=== PATIENT | female | born 1995 | race Caucasian/White ===

== ENCOUNTER 2017-11-02 11:23 | Emergency (ER) | payer SELFPAY ==
[2017-11-02 11:31] VITALS: BP 145/73; BMI 39.4
[2017-11-02] MEDS ORDERED: PROTONIX TAB 40 MG PO ONE ×2 (12:17→12:33)
[2017-11-02] MEDS ORDERED: PHENERGAN INJ 25 MG IM ONE (12:17)
--- NOTE | 2017-11-02 12:20 | DR.GENAD ---
HPI - PCP Primary Care Physician: none - Complaint/Symptoms Chief Complaint Doctors Comments: She has had suprapubic abdominal pain early this a.m. while at work. She describes this as sharp and constant until her arrival here. She also burped at work and it had a sour taste. Chief Complaint:: "abd pain since this moring with sour burps" - Nurses notes reviewed Nurses Notes Review: Yes - Source History Provided: Patient - Mode of Arrival Mode of Arrival: Ambulatory - Timing Onset of Chief Complaint: 11/02/17 PMH - PMH Past Medical History: Yes Past Medical History: Asthma Past Surgical History: Yes Surgical History: Tonsillectomy - Family History History of Family Medical Conditions: Yes Family Medical History: Cancer, [place], Coronary Artery Disease, Heart Failure, Hypertension - Social History Does patient currently use any type of tobacco product: No Have you used tobacco products in the last 12 months: No Type of Tobacco Use: None Does any household member use tobacco: No Alcohol Use: None Do you use any recreational Drugs:: No Lives With: Family Lives Where: Home - infectious screening In the last 2 months have you had wt loss of >10#?: NO Have you had fever, night sweats or hemotysis?: No Have you traveled outside the country in the last 6 months?: No Isolation: Standard ROS - Review of Systems Constitutional: No Symptoms Reported Eyes: No Symptoms Reported ENTM: No Symptoms Reported Respiratoy: No Symptoms Reported Cardiovascular: No Symptoms Reported Gastrointestinal/Abdominal: Abdominal Pain (suprapubic location) Genitourinary: No Symptoms Reported Neurological: No Symptoms Reported Musculoskeletal: No Symptoms Reported Integumentary: No Symptoms Reported Hematologic/Lymphatic: No Symptoms Reported Endocrine: No Symptoms Reported Psychiatric: No Symptoms Reported PE - Vital Signs Vitals: Temperature 98 F Pulse Rate 90 Respiratory Rate 18 Blood Pressure [Left Arm] 115/71 Blood Pressure 145/73 O2 Sat by Pulse Oximetry 100 - General Limitations: No Limitations General Appearance: Alert, In No Apparent Distress - Head Head Exam: Normal Inspection - Eyes Eye exam: Normal Appearance, PERRL, EOMI - ENT ENT Exam: Normal Exam - Neck Neck Exam: Normal Inspection, Full ROM - Chest Chest Inspection: Normal Inspection, Symmetric Chest Wall Rise - Respiratory Respiratory Exam: Normal Lung Sounds Bilat - Cardiovascular Cardiovascular Exam: Regular Rate, Normal Rhythm, +S1, +S2 - Abdominal Exam Abdominal Exam: Normal Inspection, Normal Bowel Sounds, Soft, Tenderness Abdominal Tenderness: Suprapubic - Extremities Extremities Exam: Normal Inspection, Full ROM - Back Back Exam: Normal Inspection, Full ROM - Neurologic Neurological Exam: Alert, Oriented X3 - Psychiatric Psychiatric Exam: Normal Affect, Normal Mood - Skin Skin Exam: Warm, Dry, Intact, Normal Color ROR - Labs Reviewed Result Diagrams: 11/02/17 12:29 Laboratory: Sodium 139 mmol/L (136-145) 11/02/17 12:29 Corrected Sodium TNP 11/02/17 12:29 Potassium 3.9 mmol/L (3.5-5.1) 11/02/17 12:29 Chloride 102 mmol/L (98-107) 11/02/17 12:29 Carbon Dioxide 27.4 mmol/L (21-32) 11/02/17 12:29 BUN 10 mg/dL (7-18) 11/02/17 12:29 Creatinine 0.48 mg/dL (0.55-1.02) L 11/02/17 12:29 Est GFR (MDRD) Af Amer > 60 (>60) 11/02/17 12:29 Est GFR (MDRD) Non-Af > 60 (>60) 11/02/17 12:29 Glucose 89 mg/dL (65-99) 11/02/17 12: Calcium 9.0 mg/dL (8.5-10.1) 11/02/17 12:29 Corrected Calcium TNP 11/02/17 12:29 Total Bilirubin 0.20 mg/dL (0.2-1.0) 11/02/17 12:29 AST 15 Units/L (15-37) 11/02/17 12:29 ALT 18 Units/L (12-78) 11/02/17 12:29 Alkaline Phosphatase 85 Units/L (46-116) 11/02/17 12:29 Total Protein 7.9 g/dL (6.4-8.2) 11/02/17 12:29 Albumin 3.6 g/dL (3.4-5.0) 11/02/17 12:29 Globulin 4.3 g/dL (2.5-4.5) 11/02/17 12:29 Albumin/Globulin Ratio 0.8 Ratio (1.1-2.1) L 11/02/17 12:29 Amylase 41 Units/L (25-115) 11/02/17 12:29 Specimen Type Clean catch urine 11/02/17 12:19 Urine Color Yellow (YELLOW) 11/02/17 12: Urine Appearance Clear (CLEAR) 11/02/17 12:19 Urine pH 5.0 (5.0 - 8.0) 11/02/17 12:19 Ur Specific [place] 1.025 (1.000-1.030) 11/02/17 12:19 Urine Protein Negative (NEGATIVE) 11/02/17 12:19 Urine Glucose (UA) Negative (NEGATIVE) 11/02/17 12: Urine Ketones Negative (NEGATIVE) 11/02/17 12: Urine Occult Blood 1+ (NEGATIVE) 11/02/17 12: Urine Nitrite Negative (NEGATIVE) 11/02/17 12: Urine Bilirubin Negative (NEGATIVE) 11/02/17 12:19 Urine Urobilinogen Normal (NORMAL) 11/02/17 12:19 Ur Leukocyte Esterase 2+ (NEGATIVE) 11/02/17 12: Urine RBC 2-5 /HPF (NEGATIVE) 11/02/17 12:19 Urine WBC 2-4 /HPF (NEGATIVE) 11/02/17 12:19 Ur Squamous Epith Cells Many /HPF (NEGATIVE) 11/02/17 12: Amorphous Sediment 1+ /HPF (NEGATIVE) 11/02/17 12: Urine Bacteria Negative /HPF (NEGATIVE) 11/02/17 12:19 Ur Culture Indicated? No/not indicated 11/02/17 12:19 - Diagnosis Discharge Problem: Lower urinary tract infection, GERD (gastroesophageal reflux disease) - Discharge Plan Disposition: 01 HOME, SELF-CARE Condition: Stable - Follow ups/Referrals Follow ups/Referrals: NFD,None [Primary Care Provider] - 3 days - Instructions
[2017-11-02] MEDS ORDERED: PHENERGAN INJ 25 MG ONE (12:33)
[2017-11-02 12:50] LABS: ALANINE AMINOTRANSFERASE 18 Units/L (12-78); ALBUMIN 3.6 g/dL (3.4-5.0); ALKALINE PHOSPHATASE 85 Units/L (46-116); AMYLASE 41 Units/L (25-115); ASPARTATE AMINO TRANSFERASE 15 Units/L (15-37); BLOOD UREA NITROGEN 10 mg/dL (7-18); CARBON DIOXIDE 27.4 mmol/L (21-32); CHLORIDE 102 mmol/L (98-107); CREATININE 0.48 mg/dL (0.55-1.02); SODIUM 139 mmol/L (136-145); TOTAL PROTEIN 7.9 g/dL (6.4-8.2); eGFR BLACK RACES > 60 (>60); eGFR NON BLACK RACES > 60 (>60)
[2017-11-02 13:04] LABS: BILIRUBIN,URINE NEGATIVE (NEGATIVE); BLOOD/HEMOGLOBIN,URINE 1+ (NEGATIVE); GLUCOSE, URINE NEGATIVE (NEGATIVE); KETONES,URINE NEGATIVE (NEGATIVE); LEUKOCYTE ESTERASE ,URINE 2+ (NEGATIVE); NITRITES,URINE NEGATIVE (NEGATIVE); PROTEIN,URINE NEGATIVE (NEGATIVE); UROBILINOGEN,URINE NORMAL (NORMAL)
[2017-11-02 13:18] LABS: AMORPHOUS SEDIMENT,UR 1+ /HPF (NEGATIVE); APPEARANCE,URINE CLEAR (CLEAR); BACTERIA,URINE NEGATIVE /HPF (NEGATIVE); COLOR,URINE YELLOW (YELLOW); SQUAMOUS EPITHELIAL CELL,UR MANY /HPF (NEGATIVE)
== END 2017-11-02 14:15 | disposition home or self-care (01) ==
LOC: ER 11:40
DX: K21.9 Gastro-esophageal reflux disease without esophagitis (principal); N39.0 Urinary tract infection, site not specified
CPT/HCPCS: 36415; 80053; 81001; 82150; 96372; 99282; J2550

== ENCOUNTER 2017-12-22 19:42 | Emergency (ER) | payer SELFPAY ==
[2017-12-22 19:55] VITALS: BP 118/80; BMI 40.8
[2017-12-22 20:39] LABS: BILIRUBIN,URINE NEGATIVE (NEGATIVE); BLOOD/HEMOGLOBIN,URINE 3+ (NEGATIVE); GLUCOSE, URINE NEGATIVE (NEGATIVE); KETONES,URINE 1+ (NEGATIVE); LEUKOCYTE ESTERASE ,URINE 3+ (NEGATIVE); NITRITES,URINE POSITIVE (NEGATIVE); PROTEIN,URINE 2+ (NEGATIVE); UROBILINOGEN,URINE NORMAL (NORMAL)
--- NOTE | 2017-12-22 20:39 | DR.GENAD ---
HPI - PCP Primary Care Physician: NFD - Complaint/Symptoms Chief Complaint Doctors Comments: Patient states she thinks she may have a bad UTI because it hurts when she urinates for the past seven days. States she had and episode of hematuria yesterday. She denies fever or chills, cold or cough. States she works in 30 degrees and stay cold all the time and cannot tell if she has been having chills. She denies nausea, vomiting, vagingal discharge or vaginal bleeding. She is also complaining of left lower abdominal pain. She denies any recent trauma. States she does not have a local doctor. Patient states she has been taking AZO without improvement. Chief Complaint:: Possible UTI/Kidney infection Self Treatment fo Chief Complaint: Cranberry juice and AZO pills - Nurses notes reviewed Nurses Notes Review: Yes - Source History Provided: Patient - Mode of Arrival Mode of Arrival: Ambulatory - Timing Onset of Chief Complaint: 12/16/17 Came on: Gradually - Duration Duration: Constant How lon Duration: Days - Location Location: left lower abdominal pain - Severity Severity: Moderate - Modifying Factors Worsens:: urinating Improves:: nothing PMH - PMH Past Medical History: Yes Past Medical History: Anemia, Anxiety, Depression, Hypertension Past Surgical History: Yes Surgical History: Tonsillectomy Past Surgical History Comment: (2) 2013, 2014 - Family History History of Family Medical Conditions: Yes Family Medical History: Diabetes Mellitus, Cancer, Hypertension - Social History Does patient currently use any type of tobacco product: Yes Have you used tobacco products in the last 12 months: Yes Type of Tobacco Use: Cigarettes How many years tobacco product used: 5 Does any household member use tobacco: Yes Alcohol Use: None Do you use any recreational Drugs:: No Lives With: Family Lives Where: Home - infectious screening In the last 2 months have you had wt loss of >10#?: NO Have you had fever, night sweats or hemotysis?: No Have you traveled outside the country in the last 6 months?: No Isolation: Standard ROS - Review of Systems Constitutional: No Symptoms Reported. negative: See HPI, Chills, Diaphoresis, Fever, Malaise, Weakness, Irritable, Fatigue, Loss of Appetite, Other Eyes: No Symptoms Reported. negative: See HPI, Eye Pain, Blurred Vision, Tearing, Discharge, Photophobia, Diplopia, Other ENTM: No Symptoms Reported Respiratoy: No Symptoms Reported. negative: See HPI, Productive Cough, Non- Productive Cough, Moist Cough, Dry Cough, Hacking Cough, Barking Cough, Brassy Cough, Orthopnea, Short of Breath, Stridor, Wheezing, Hemoptysis, Other Cardiovascular: No Symptoms Reported. negative: See HPI, Chest Pain, Edema, Palpitations, Syncope, Cyanosis, Skin Mottling, Other Gastrointestinal/Abdominal: No Symptoms Reported, Abdominal Pain. negative: See HPI, Constipation, Diarrhea, Nausea, Vomiting, Food Intolerance, Other Genitourinary: Dysuria, Frequency, Hematuria. negative: No Symptoms Reported, See HPI, Discharge, Pain, Bleeding, Other Neurological: No Symptoms Reported. negative: See HPI, Anxiety, Depressed, Emotional Problems, Headache, Numbness, Paresthesia, Pre-existing Deficit, Seizure, Tingling, Tremors, Weakness, Dizziness, Problems Walking, Speech Problem, Other Musculoskeletal: No Symptoms Reported. negative: See HPI, Back Pain, Gout, Joint Pain, Joint Swelling, Muscle Pain, Muscle Stiffness, Neck Pain, Right, Left, Neck, Chest wall, Rib(s), Back, Shoulder, Arm, Elbow, Forearm, Wrist, Hand , Pelvis, Hip, Leg, Knee, Ankle, Foot, Other Integumentary: No Symptoms Reported. negative: See HPI, Change in Color, Change in Hair/Nails, Dryness, Lesions, Lumps, Rash, Itching, Wound, Bruises, Juandice, Other Hematologic/Lymphatic: No Symptoms Reported. negative: See HPI, Anemia, Blood Clots, Easy Bleeding, Easy Bruising, Swollen Glands, Lymphadenopathy, Other Endocrine: No Symptoms Reported Psychiatric: No Symptoms Reported. negative: See HPI, Anxiety, Depression, Hallucinations, Excessive crying, Suicidal, Other PE - Vital Signs Vitals: Temperature 98.2 F Pulse Rate 90 Respiratory Rate 20 Blood Pressure [Left Arm] 115/71 Blood Pressure 118/80 O2 Sat by Pulse Oximetry 96 - General Limitations: No Limitations General Appearance: Alert, In No Apparent Distress - Head Head Exam: Normal Inspection, Atraumatic, Normocephalic - Eyes Eye exam: Normal Appearance, PERRL, EOMI. negative: Scleral Icterus, Conjunctival Injection, Nystagmus, Miosis, Mydrasis, Periorbital Swelling, Periorbital Tenderness, Other - ENT ENT Exam: Normal Exam, Normal Oropharynx, Normal External Ear Exam, Mucous Membranes Moist, TM's Normal Bilaterally External Ear Exam: Normal External Inspection. negative: Auricular Hematoma, Auricular Trauma, Mastoid Tenderness, Pain with Movement, External Tenderness, Periauricular Adenopathy, Other TM/Canal Exam: Bilateral Normal Nose Exam: Normal Nose Exam Mouth Exam: Normal Inspection. negative: Drooling, Trismus, Lip Swelling, Tongue Elevation, Tongue Swelling, Laceration, Other Throat Exam: Normal Inspection. negative: Tonsillar Erythema, Tonsillomegaly, Tonsillar Exudate, R Peritonsillar Mass, L Peritonsillar Mass, Muffled Voice, Other - Neck Neck Exam: Normal Inspection, Full ROM, Trachea Midline. negative: Tenderness, Meningismus, Lymphadenopathy, Thyromegaly, Other - Chest Chest Inspection: Normal Inspection, Symmetric Chest Wall Rise. negative: Tenderness, Rash, Abscess, Other - Respiratory Respiratory Exam: Normal Lung Sounds Bilat Respiratory Exam: Bilateral Clear to Auscultation - Cardiovascular Cardiovascular Exam: Regular Rate, Normal Rhythm, Normal Heart Sounds. negative : Bradycardia, Tachycardia, Irregular Rhythm, Systolic Murmur, Diastolic Murmur , Rubs, Gallop, Clicks, JVD, +S1, +S2, +S3, +S4, Other - Abdominal Exam Abdominal Exam: Normal Inspection, Normal Bowel Sounds, Soft. negative: Distention, Tenderness, Guarding, Rebound, Rigidity, Dimnished Bowel Sounds, Hyperactive Bowel Sounds, Hypoactive Bowel Sounds, Organomegaly, Trauma, Incision, Ascites, Mass, Bruit, Pulsatile Mass, Hernia, Other Abdominal Tenderness: negative: RUQ, RLQ, LUQ, LLQ, Epigastrium, Suprapubic, Diffuse, Mild, Moderate, Severe, Other - Extremities Extremities Exam: Normal Inspection, Full ROM, Normal Capillary Refill. negative: Tenderness, Edema, Joint Swelling, Calf Tenderness, Other - Back Back Exam: Normal Inspection, Full ROM. negative: Tenderness, (R) CVA Tenderness, (L) CVA Tenderness, Muscle Spasm, Paraspinal Tenderness, Vertebral Tenderness, Rashes, (R) Sciatic Notch Tenderness, (L) Sciatic Notch Tendern, (R ) Straight Leg Raise, (L) Straight Leg Raise, Other - Neurologic Neurological Exam: Alert, Oriented X3, CN II-XII Intact, Normal Gait, Reflexes Normal. negative: Motor Sensory Deficit, Other - Psychiatric Psychiatric Exam: Normal Affect, Normal Mood. negative: Depressed, Agitated, Anxious, Flat Affect, Manic, Homicidal Ideation, Suicidal Ideation, Other - Skin Skin Exam: Warm, Dry, Intact, Normal Color. negative: Rash, Cyanosis, Diaphoresis, Erythema, Pallor, Mottled, Other ROR - Labs Reviewed Laboratory Results Reviewed?: Yes (all lab results reviewed and discussed with patient) Laboratory: Specimen Type Clean catch urine 12/22/17 20:33 Urine Color Yellow (YELLOW) 12/22/17 20:33 Urine Appearance Cloudy (CLEAR) 12/22/17 20:33 Urine pH 5.0 (5.0 - 8.0) 12/22/17 20:33 Ur Specific [place] 1.025 (1.000-1.030) 12/22/17 20:33 Urine Protein 2+ (NEGATIVE) 12/22/17 20:33 Urine Glucose (UA) Negative (NEGATIVE) 12/22/17 20:33 Urine Ketones 1+ (NEGATIVE) 12/22/17 20:33 Urine Occult Blood 3+ (NEGATIVE) 12/22/17 20:33 Urine Nitrite Positive (NEGATIVE) 12/22/17 20:33 Urine Bilirubin Negative (NEGATIVE) 12/22/17 20:33 Urine Urobilinogen Normal (NORMAL) 12/22/17 20:33 Ur Leukocyte Esterase 3+ (NEGATIVE) 12/22/17 20:33 Urine RBC 10-20 /HPF (NONE SEEN) 12/22/17 20:33 Urine WBC Tntc /HPF (NONE SEEN) 12/22/17 20:33 Ur Squamous Epith Cells Few /HPF (NEGATIVE) 12/22/17 20:33 Urine Bacteria 2+ /HPF (NEGATIVE) 12/22/17 20:33 Urine Mucus Moderate /HPF (NEGATIVE) 12/22/17 20:33 Ur Culture Indicated? Yes/culture set up 12/22/17 20:33 - Diagnosis Discharge Problem: Acute lower urinary tract infection, Cystitis - Discharge Plan Disposition: 01 HOME, SELF-CARE Condition: Stable Prescriptions: Ciprofloxacin HCl [CIPRO 500 MG TAB *] 500 mg PO Q12H #20 tab Levofloxacin [LEVAQUIN TAB 500 MG *] 500 mg PO DAILY #20 tab Phenazopyridine HCl [Pyridium] 200 mg PO TID PRN #21 tablet PRN Reason: - Follow ups/Referrals Follow ups/Referrals: NFD,None [Primary Care Provider] - 3 days KALPANA CUMMINS [STAFF PHYSICIAN] - 3 days - Instructions Instructions: Urinary Tract Infection, Adult
[2017-12-22] MEDS ORDERED: PYRIDIUM PO ONE ×2 (20:40→20:42)
[2017-12-22 20:41] LABS: APPEARANCE,URINE CLOUDY (CLEAR); COLOR,URINE YELLOW (YELLOW)
[2017-12-22] MEDS ORDERED: LEVAQUIN TAB 500 MG ONE (20:42)
[2017-12-22 20:46] LABS: BACTERIA,URINE 2+ /HPF (NEGATIVE); SQUAMOUS EPITHELIAL CELL,UR FEW /HPF (NEGATIVE)
[2017-12-22 20:47] LABS: MUCUS,URINE MODERATE /HPF (NEGATIVE)
[2017-12-22] MEDS ORDERED: LEVAQUIN TAB 500 MG PO SCH (21:00)
== END 2017-12-22 21:01 | disposition home or self-care (01) ==
LOC: ER 19:57
DX: N39.0 Urinary tract infection, site not specified (principal); N30.90 Cystitis, unspecified without hematuria; B96.29 Other Escherichia coli [E. coli] as the cause of diseases classified elsewhere
CPT/HCPCS: 81001; 87086; 87088; 87186; 99282